=== PATIENT | female | born 1965 | race African-American/Black ===

== ENCOUNTER 2017-02-14 14:47 | Emergency (ER) | payer MEDICAID ==
[~2017-02-14] VITALS: Ht 175.3 cm; Wt 113.4 kg
[2017-02-14] MEDS ORDERED: ESTRADIOL0.5 M1 PO (14:56)
[2017-02-14] MEDS ORDERED: Albuterol ud Inhalation HHN ONE (15:15)
[2017-02-14] MEDS ORDERED: ZITHROMAX250 MG ORAL (15:54)
[2017-02-14] MEDS ORDERED: PROVENTIL HFA6.7 G1 IH (15:54)
--- NOTE | 2017-02-14 15:55 | Emergency Room Report ---
History of Present Illness General Chief Complaint: Upper Respiratory Illness Source: Patient Present Illness HPI 51 y/o female c/o URI sxs x 2 weeks. Assoc sxs include cough, fatigue, and chest congestion with green phlegm. States she has a hx of chronic bronchitis and does not take medications. States they have not taken medications and report no improvement of symptoms since initial onset. Denies any current n/v/f/ c/d, abd pain, back pain, neck pain, photophobia, phonophobia, CP, SOB or headache. Allergies: Coded Allergies: No Known Allergies (Unverified , 02/14/17) Patient History Past Medical History: see triage record Pertinent Family History: none Last Menstrual Period: menopause Reviewed Nursing Documentation: PMH: Agreed, PSxH: Agreed Nursing Documentation-PMH Past Medical History: No Stated History Review of Systems All Other Systems: negative except mentioned in HPI Physical Exam Vital Signs Date Time Temp Pulse Resp B/P (MAP) Pulse Ox O2 Delivery O2 Flow Rate FiO2 02/14/17 14:52 97.0 87 18 124/76 96 Room Air Sp02 EP Interpretation: reviewed, normal General Appearance: no apparent distress, alert, GCS 15, non-toxic Head: normocephalic, atraumatic Eyes: bilateral eye normal inspection, bilateral eye PERRL ENT: hearing grossly normal, normal pharynx, no angioedema, normal voice Neck: full range of motion, supple/symm/no masses Respiratory: chest non-tender, lungs clear - may be limited due to patient's habitus, normal breath sounds, speaking full sentences Cardiovascular #1: regular rate, rhythm, no edema Musculoskeletal: back normal, gait/station normal, normal range of motion Neurologic: alert, oriented x3, responsive, motor strength/tone normal, sensory intact, speech normal Psychiatric: judgement/insight normal, memory normal, mood/affect normal, no suicidal/homicidal ideation Skin: normal color, no rash, warm/dry, well hydrated Medical Decision Making PA Attestation Dr. Nam my supervising physician with whom patient management has been discussed with. Diagnostic Impression: Primary Impression: Community acquired pneumonia Qualified Codes: J18.1 - Lobar pneumonia, unspecified organism ER Course Pt. presents to the ED c/o of cough and chest congestion Ddx considered but are not limited to bronchitis, pneumonia, viral upper respiratory tract infection Vital signs: are WNL, pt. is afebrile H&PE are most consistent with questionable RLL pneumonia ORDERS: CXR ED INTERVENTIONS: Albuterol DISCHARGE: At this time pt. is stable for d/c to home. Will provide printed patient care instructions, and any necessary prescriptions. Care plan and follow up instructions have been discussed with the patient prior to discharge. Chest X-Ray Diagnostic Results Chest X-Ray Diagnostic Results : Chest X-Ray Ordered: Yes # of Views/Limited/Complete: 2 View Indication: Shortness of Breath EP Interpretation: Yes WILLIAMS Xray: Interpretation reviewed, by supervising MD, and agrees with findings. Interpretation: other - questionable RLL pneumonia Electronically Signed by: Lizabeth Hall PA-C Last Vital Signs Date Time Temp Pulse Resp B/P (MAP) Pulse Ox O2 Delivery O2 Flow Rate FiO2 02/14/17 15:05 87 18 Room Air 02/14/17 14:52 97.0 124/76 96 Disposition: HOME, SELF-CARE Scripts Albuterol Sulfate (PROVENTIL HFA) 6.7 Gm Hfa.aer.ad 2 PUFFS IH EVERY 6 HOURS Y for For Cough for 10 Days, #1 UNIT Prov: LIZABETH HALL.A. 02/14/17 Azithromycin* (ZITHROMAX*) 250 Mg Tablet 250 MG ORAL take as directed, #1 PACK 0 Refills Take two tables once daily for 1 day, then one tablet once daily for 4 days. Prov: LIZABETH HALL P.A. 02/14/17 Patient Instructions: Community-Acquired Pneumonia, Adult Additional Instructions: Take medication as directed. Drink plenty of fluids which include Gatorade and water. Get plenty of rest. Avoid taking medications on an empty stomach. If you have cough avoid dairy and cold beverages. If you have a fever, headache or body aches please take ivkw-[id number]-yozgtyt tylenol/motrin/advil unless a prescription for these symptoms have been given. If your symptoms are worsening or you have shortness or breath, severe headaches or chest pain, please call 911 or go to the ER. LIZABETH HALL Feb 14, 2017 15:55
--- NOTE | 2017-02-14 16:01 | Diagnostic Imaging Report ---
Indication: Cough Technique: XRAY Chest 2v Comparison: None FINDINGS: Heart size and mediastinal contours are within normal limits. There is very subtle asymmetric opacity in the medial right lower lung on frontal view which is likely related to vascular markings/vascular crowding since this is not seen on lateral view. Osseous structures demonstrate no acute abnormality. IMPRESSION: No definite focal consolidation.
[2017-02-14 16:15] VITALS: BP 120/82
[2017-02-14 16:20] VITALS: BP 120/82
== END 2017-02-14 16:20 | disposition home or self-care (01) ==
LOC: EMR 15:25
DX: J18.9 Pneumonia, unspecified organism (principal)
CPT/HCPCS: 71020; 94640; 94664; 99284

== ENCOUNTER 2017-03-02 14:36 | Emergency (ER) | payer MEDICAID ==
[~2017-03-02] VITALS: Ht 175.3 cm; Wt 99.8 kg
[~2017-03-02 14:36] MED LIST: ESTRADIOL0.5 M1 PO; PROVENTIL HFA6.7 G1 IH; ZITHROMAX250 MG ORAL
[2017-03-02 15:40] VITALS: BP 126/78
[2017-03-02] MEDS ORDERED: OMEPRAZOLE20 M2 ORAL (15:41)
[2017-03-02 16:30] VITALS: BP 129/84
--- NOTE | 2017-03-02 21:49 | Emergency Room Report ---
History of Present Illness General Chief Complaint: General Complaint Source: Patient Present Illness HPI The patient is a 51-year-old female presenting for 2 complaints. She has been having abdominal pain for the past 2 weeks. She also noticed a rash on her tongue this morning. Abdominal pain described as 5/10 burning sensation to the mid upper abdomen. It occasionally radiates to the mid chest. Worse tonight. She noticed a white rash on her tongue this morning. She was unable to scrape it off. She admits to a distant history of smoking. She denies any oral pain. She denies any other symptoms including N, V, F, chills, cough, weight loss, night sweats Allergies: Coded Allergies: No Known Allergies (Unverified , 02/14/17) Patient History Past Medical History: see triage record Pertinent Family History: none Reviewed Nursing Documentation: PMH: Agreed, PSxH: Agreed Nursing Documentation-PMH Past Medical History: No Stated History Review of Systems All Other Systems: negative except mentioned in HPI Physical Exam Vital Signs Date Time Temp Pulse Resp B/P (MAP) Pulse Ox O2 Delivery O2 Flow Rate FiO2 03/02/17 15:28 97.7 76 18 126/78 97 Room Air Sp02 EP Interpretation: reviewed, normal Head: normocephalic, atraumatic Eyes: bilateral eye normal inspection, bilateral eye PERRL ENT: normal pharynx, normal voice, uvula midline, other - There is a thick white coating primarily to the left side of the tongue. Unable to scrape off. Neck: full range of motion, supple/symm/no masses Musculoskeletal: back normal, gait/station normal, normal range of motion, non- tender Neurologic: alert, oriented x3, responsive, motor strength/tone normal, sensory intact, speech normal Skin: normal color, no rash, warm/dry, well hydrated Medical Decision Making PA Attestation Dr. Nam is my supervising physician. Patient management was discussed with my supervising physician Diagnostic Impression: Primary Impression: GERD (gastroesophageal reflux disease) Qualified Codes: K21.9 - Gastro-esophageal reflux disease without esophagitis Additional Impression: Leukoplakia ER Course The patient is a 51-year-old female presenting for abdominal pain and tongue rash Differential diagnoses considered but not limited to: GERD, gastritis, gastric ulcer, gastroenteritis Differential diagnoses considered but not limited to: Oral candidiasis, leukoplakia, malignancy, among others Physical exam: Vitals within normal limits. No apparent distress There is a thick white coating primarily to the left side of the tongue. Unable to scrape off. RRR. Lungs are clear to auscultation bilaterally Abdomen is soft. Normal bowel sounds. Nondistended. Non tender The patient is discharged home with prescription for omeprazole. She will follow up with her primary doctor and is told she will likely need further evaluation and testing for the tongue lesion as soon as possible Last Vital Signs Date Time Temp Pulse Resp B/P (MAP) Pulse Ox O2 Delivery O2 Flow Rate FiO2 03/02/17 16:30 68 20 129/84 96 Room Air 03/02/17 15:40 97.7 Status: improved Disposition: HOME, SELF-CARE Condition: Improved Scripts Omeprazole (OMEPRAZOLE) 20 Mg Capsule. 20 MG ORAL DAILY, #30 CAP Prov: DULCE FERREIRA 03/02/17 Referrals: [facility],REFERRING (PCP) Patient Instructions: Food Choices for Gastroesophageal Reflux Disease, Adult, Leukoplakia Additional Instructions: I discussed my findings with the patient. All questions and concerns have been answered. Treatment and medication compliance have been addressed. I advised the patient that they need to follow up with PMD in 3-5 days. Return to ED if symptoms worsen, new symptoms arise, or if needed for any reason. Patient verbalized understanding of discharge instructions. Please followup with your primary doctor as soon as possible for further evaluation of the tongue lesion. You may need to have biopsy done DULCE FERREIRA Mar 02, 2017 21:49
== END 2017-03-02 16:30 | disposition home or self-care (01) ==
LOC: EMR 15:48
DX: K21.9 Gastro-esophageal reflux disease without esophagitis (principal); K14.9 Disease of tongue, unspecified
CPT/HCPCS: 99283

== ENCOUNTER 2017-05-24 20:49 | Emergency (ER) | payer MEDICAID ==
[~2017-05-24] VITALS: Ht 175.3 cm; Wt 137.9 kg
[~2017-05-24 20:49] MED LIST changes: +OMEPRAZOLE20 M2 ORAL
[2017-05-24 21:05] VITALS: BP 118/84
--- NOTE | 2017-05-24 22:13 | Emergency Room Report ---
History of Present Illness General Chief Complaint: Constipation Source: Patient Present Illness HPI 51-year-old female walks in with 2 days of constipation States normall she has bowel movement every day She denies being able to pass any gas Denies any nausea, vomiting. States she's been able to eat 3 meals a day as normal denies any new medication, pain medications, opioids Surgical history significant only for prior hysterectomy She saw her doctor today who "did blood work" but she wasn't given the results yet Has been drinking tea however has not tried any laxatives Allergies: Coded Allergies: No Known Allergies (Unverified , 02/14/17) Patient History Past Medical History: none Pertinent Family History: none Social History: Denies: smoking, alcohol use, drug use Last Menstrual Period: N/A - HYSTERECTOMY Now: No Immunizations: UTD Reviewed Nursing Documentation: PMH: Agreed; PSxH: Agreed Nursing Documentation-PMH Past Medical History: No History, Except For Hx Cardiac Problems: No - OA Review of Systems All Other Systems: negative except mentioned in HPI Physical Exam Vital Signs Date Time Temp Pulse Resp B/P (MAP) Pulse Ox O2 Delivery O2 Flow Rate FiO2 05/24/17 20:55 98.3 85 20 116/82 95 Room Air 98.2 Sp02 EP Interpretation: reviewed, normal General Appearance: normal inspection, well appearing, no apparent distress, alert, GCS 15, non-toxic, obese, other - ambulates with cane Head: normocephalic, atraumatic Eyes: bilateral eye PERRL, bilateral eye EOMI ENT: normal ENT inspection, hearing grossly normal, normal pharynx, no angioedema, normal voice, TMs + canals normal, uvula midline, moist mucus membranes Neck: normal inspection, full range of motion, supple, thyroid normal, no meningismus, no bony tend Respiratory: normal inspection, lungs clear, normal breath sounds, no rhonchi, no respiratory distress, no retraction, no accessory muscle use, no wheezing, speaking full sentences Cardiovascular #1: regular rate, rhythm, no edema, no JVD, normal capillary refill Gastrointestinal: normal inspection, normal bowel sounds, soft, no mass, no peritonitis, non-distended, no guarding, no hernia, no pulsatile mass, other - Very minimal ttp to left upper and lower abdomen.\\ Genitourinary: no CVA tenderness Musculoskeletal: normal inspection, back normal, normal range of motion, no calf tenderness, pelvis stable, Dk's Sign negative Neurologic: normal inspection, alert, oriented x3, responsive, 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, motor strength/tone normal, cerebellar normal, normal gait, speech normal Psychiatric: normal inspection, judgement/insight normal, mood/affect normal, no suicidal/homicidal ideation, no delusions Skin: normal inspection, normal color, no rash Lymphatic: normal inspection, no adenopathy Medical Decision Making Diagnostic Impression: Primary Impression: Constipation Qualified Codes: K59.00 - Constipation, unspecified ER Course Vital signs stable, afebrile Very well-appearing Low suspicion for SBO despite past history of hysterectomy given well appearance , nonfocal abdomen and still able to tolerate by mouth, eat 3 meals a day UA negative for infection Abdominal x-ray series: No air-fluid level or distention. Normal gas bowel pattern, questionable constipation ER course: Patient has remained stable during ED stay. Disposition: Patient is to be discharged to home. Prescriptions given are lactulose Patient is instructed to follow up with their primary care doctor within 5 days. Strict return precautions discussed with patient such as fever, chills, worsening/severe pain, nausea, vomiting, which may indicate severe illness. Patient verbalizes understanding and agrees with plan. Please note that this Emergency Department Report was dictated using bigtincanreconciliation specialist technology software, occasionally this can lead to erroneous entry secondary to interpretation by the dictation equipment Last Vital Signs Date Time Temp Pulse Resp B/P (MAP) Pulse Ox O2 Delivery O2 Flow Rate FiO2 05/24/17 21:05 98.1 84 15 118/84 96 Room Air 98.1 Status: improved Disposition: HOME, SELF-CARE Scripts Lactulose (LACTULOSE*) 20 Gm/30 Ml Solution 15 ML ORAL BID for constipation for 2 Days, #1 UNIT 0 Refills Prov: TRACIE DIAMOND M.D. 05/24/17 TRACIE DIAMOND M.D. May 24, 2017 22:13
[2017-05-24 22:28] LABS: APPEARANCE,URINE CLEAR; BILIRUBIN, URINE NEGATIVE (NEGATIVE); COLOR,URINE YELLOW; GLUCOSE, URINE (UA) NEGATIVE (NEGATIVE); KETONES,URINE NEGATIVE (NEGATIVE); LEUKOCYTE ESTERASE ,URINE 1+ (NEGATIVE); NITRITE,URINE NEGATIVE (NEGATIVE); PH,URINE 5 (4.5-8.0); PROTEIN,URINE 1+ (NEGATIVE); UROBILINOGEN,URINE 1 MG/DL (0.0-1.0)
[2017-05-24 22:50] VITALS: BP 120/82
[2017-05-24] MEDS ORDERED: LACTULOSE20 GM/301 ORAL (22:50)
[2017-05-24 23:00] VITALS: BP 120/82
--- NOTE | 2017-05-25 09:08 | Diagnostic Imaging Report ---
Indication: Constipation Technique: Supine abdomen Comparison: None Findings: Bowel gas pattern is nonobstructive and nonspecific. Moderate colonic stool is present. Degenerative changes of the spine are seen. There is degenerative spurring and narrowing of the left hip. Impression: Nonobstructive and nonspecific bowel gas pattern. Moderate predominantly right-sided and transverse colonic stool.
== END 2017-05-24 23:00 | disposition home or self-care (01) ==
LOC: EMR 21:15
DX: K59.00 Constipation, unspecified (principal); Z90.710 Acquired absence of both cervix and uterus
CPT/HCPCS: 74019; 81003; 99283

== ENCOUNTER 2017-05-31 16:42 | Emergency (ER) | payer MEDICAID ==
[~2017-05-31] VITALS: Ht 175.3 cm; Wt 137.0 kg
[~2017-05-31 16:42] MED LIST changes: +LACTULOSE20 GM/301 ORAL
--- NOTE | 2017-05-31 17:02 | Emergency Room Report ---
History of Present Illness General Chief Complaint: Pain Source: Patient, Medical Record (Dharmesh Kruger) Present Illness HPI 51 yo female patient presents to ER complaining of right foot pain for one week. Denies recent injury, states did walk "a lot" yesterday. Reports sharp pain. Reports worse with ambulation. Reports wears compression stockings, denies taking water pills. Reports walks with cane secondary to chronic knee pain since last June. Reports history of edema and lymphedema, not currently being treated. Reports saw primary care provider today and has referrals for further treatment of edema and pain. Reports was not given pain medication at that time. Requesting pain medication. Denies fever, chest pain, SOB, abdominal pain, vision changes, AVILA, calf pain. Reports scheduled for weight loss surgery next month. Denies hx of cardiovascular disease. (Dharmesh Kruger) Allergies: Coded Allergies: No Known Allergies (Unverified , 02/14/17) Patient History Past Medical History: see triage record Last Menstrual Period: menopause Reviewed Nursing Documentation: PMH: Agreed; PSxH: Agreed (Dharmesh Kruger) Nursing Documentation-PMH Past Medical History: No History, Except For Hx Cardiac Problems: No - OA (Dharmesh Kruger) Review of Systems All Other Systems: negative except mentioned in HPI (Dharmesh Kruger) Physical Exam Vital Signs Date Time Temp Pulse Resp B/P (MAP) Pulse Ox O2 Delivery O2 Flow Rate FiO2 18 16:49 99.1 75 18 133/80 96 Room Air 99.1 Sp02 EP Interpretation: reviewed, normal General Appearance: well appearing, no apparent distress, alert, GCS 15, non- toxic, obese Head: normocephalic, atraumatic Eyes: bilateral eye normal inspection, bilateral eye PERRL ENT: hearing grossly normal, normal pharynx, no angioedema, normal voice, uvula midline, moist mucus membranes Neck: full range of motion Respiratory: lungs clear, normal breath sounds, no rhonchi, no respiratory distress, no accessory muscle use, no wheezing, speaking full sentences Cardiovascular #1: regular rate, rhythm, edema Musculoskeletal: back normal, digits/nails normal, gait/station normal, normal range of motion, non-tender, no calf tenderness, Dk's Sign negative, swelling , other - NVI, flat feet, sensation intact to light touch, tender - arch of right foot Neurologic: alert, oriented x3, responsive, motor strength/tone normal, sensory intact Skin: no rash, other - no red streaking Lymphatic: no adenopathy (Dharmesh Kruger) Medical Decision Making PA Attestation Dr. Aldrich is my supervising Physician whom patient management has been discussed with. (Dharmesh Kruger) Diagnostic Impression: Primary Impression: Right foot pain ER Course Pt. presents to the ED c/o right foot pain. Ddx considered but are not limited to fracture, sprain, strain, contusion, cellulitis, DVT. No chest pain, SOB, unilateral calf swelling, calf erythema, recent hospitalization or immobilization, low suspicion for DVT per Well's criteria. Vital signs: are WNL, pt. is afebrile Ordered X-ray and pain medication. ER COURSE An X-ray of the right foot was ordered, results show no acute disease, per the preliminary reading. Possible bony cyst, unlikely responsible for acute pain, does not require treatment at this time. F/u with PCP and ortho as needed. Discussed findings with patient. Discuss x-ray with Dr. Aldrich, agrees with assessment. Toradol provided in ER for pain. OLIVIA wrap applied to right foot, was checked afterwards by me showing good alignment and support with distal neurovascular functioning intact. Patient needs followup with referrals for further treatment and management of symptoms. Informed patient pain may be related to compensation of using cane on left side and putting more weight on right foot. Discussed may be related to flat feet and stretching of plantar fascia. Instructed patient to continue to wear inserts for shoes and begin stretches to improve arches. Patient reports feeling better following administration of pain medication. Continue to wear compression stockings. Report to scheduled appointment for referral for bilateral edema of legs. Weight loss will help prevent pain symptoms. DISCHARGE: -Rx provided for Tylenol for pain symptoms. At this time pt. is stable for d/c to home. Patient is resting comfortably, in no acute distress, nontoxic appearing, talking without difficulty. Will provide printed patient care instructions, and any necessary prescriptions. Patient instructed to follow with primary care provider in 3 - 5 days and to request further orthopedic follow-up. Care plan and follow up instructions have been discussed with the patient prior to discharge. Patient instructed on RICE method: rest, ice, compression, elevation. Patient instructed to WBAT Take medications as directed. Patient questions asked and answered. Patient reports understanding and agreement to treatment plan. ER precautions given, patient instructed to return to ER immediately for any new or worsening of symptoms. (Dharmesh Kruger) Other X-Ray Diagnostic Results Other X-Ray Diagnostic Results : X-Ray ordered: right foot # of Views/Limited Vs Complete: 3 View Indication: Pain EP Interpretation: Yes PA Xray: Interpretation reviewed, by supervising MD, and agrees with findings. Interpretation: no dislocation, no soft tissue swelling, no fractures Impression: No acute disease PA Scribe Text Quintin Kruger PA-C (Dharmesh Kruger) Other X-Ray Diagnostic Results : Electronically Signed by: Xray read by me. Agree with findings. Ghanshyam Aldrich MD (Ghanshaym Aldrich M.D.) Last Vital Signs Date Time Temp Pulse Resp B/P (MAP) Pulse Ox O2 Delivery O2 Flow Rate FiO2 05/31/17 16:49 99.1 75 18 133/80 96 Room Air 99.1 (Dharmesh Kruger) Last Vital Signs Date Time Temp Pulse Resp B/P (MAP) Pulse Ox O2 Delivery O2 Flow Rate FiO2 05/31/17 17:57 99.1 05/31/17 17:48 75 18 133/80 96 Room Air (Ghanshyam Aldrich M.D.) Disposition: HOME, SELF-CARE Condition: Stable Scripts Acetaminophen* (TYLENOL EXTRA STRENGTH*) 500 Mg Tablet 500 MG ORAL Q8H PRN for Prn Headache/Temp > 101, #30 TAB 0 Refills Prov: Dharmesh Kruger 05/31/17 Patient Instructions: Endoscopic Plantar Fasciotomy, Flat Feet, Foot Contusion , [id number], Plantar Fasciitis Additional Instructions: Patient instructed to follow up with primary care provider in 3-5 days. Patient instructed on RICE method: rest, ice, compression, elevation. Patient instructed to WBAT. Take medications as directed. Patient questions asked and answered. ER precautions given, patient instructed to return to ER immediately for any new or worsening of symptoms. Dharmesh Kruger May 31, 2017 17:02 Ghanshyam Aldrich M.D. Jun 01, 2017 04:25
[2017-05-31] MEDS ORDERED: Ketorolac 30mg Inj IM ONE (17:15)
[2017-05-31 17:23] VITALS: BP 133/80
[2017-05-31] MEDS ORDERED: TYLENOL EXTRA500 MG ORAL (17:42)
[2017-05-31 17:48] VITALS: BP 133/80
--- NOTE | 2017-06-01 09:35 | Diagnostic Imaging Report ---
Indication: Reason For Exam: PAIN Technique: Right foot, 3 views Comparison: None. Findings: There is a small bunion deformity of the first metatarsal. Bony structures intact. No fracture. No bone destruction. There is a plantar calcaneal spur. Impression: Calcaneal enthesophyte. Possible mild bunion deformity of the first metatarsal.
== END 2017-05-31 17:48 | disposition home or self-care (01) ==
LOC: EMR 17:45
DX: M79.671 Pain in right foot (principal)
CPT/HCPCS: 73630; 96372; 99283; J1885

== ENCOUNTER 2018-09-20 20:06 | Emergency (ER) | payer MEDICAID ==
[~2018-09-20] VITALS: Ht 175.3 cm; Wt 106.6 kg
[~2018-09-20 20:06] MED LIST changes: +TYLENOL EXTRA500 MG ORAL
[2018-09-20 20:13] VITALS: BP 123/62
[2018-09-20] MEDS ORDERED: VOLTAREN100 G1 TP (20:39)
[2018-09-20] MEDS ORDERED: NORCO 10-325 T1 EACH ORAL (20:39)
--- NOTE | 2018-09-20 20:39 | NUR ---
ED Nurse Note: Patient presents with complaints of chronic back pain, recently worsened.
[2018-09-20 20:43] VITALS: BP 123/62
--- NOTE | 2018-09-22 22:01 | Emergency Room Report ---
History of Present Illness General Chief Complaint: Back Pain-No Injury Source: Patient Present Illness Allergies: Coded Allergies: No Known Allergies (Unverified , 02/14/17) Patient History Last Menstrual Period: NA Now: No : 0 Para: 0 Nursing Documentation-PMH Hx Cardiac Problems: No - OA Hx Neurological Problems: Yes - back manuel; shoulder Physical Exam Vital Signs Date Time Temp Pulse Resp B/P (MAP) Pulse Ox O2 Delivery O2 Flow Rate FiO2 09/20/18 20:13 97.5 89 16 123/62 98 Room Air Medical Decision Making Diagnostic Impression: Primary Impression: Chronic back pain greater than 3 months duration Last Vital Signs Date Time Temp Pulse Resp B/P (MAP) Pulse Ox O2 Delivery O2 Flow Rate FiO2 09/20/18 20:43 97.5 89 16 123/62 98 Room Air Status: improved Disposition: HOME, SELF-CARE Condition: Stable Scripts Hydrocodone Bit/Acetaminophen 10-325* (NORCO 10-325*) 1 Each Tablet 1 TAB ORAL Q6H PRN for For Pain, #12 TAB 0 Refills PRN PAIN Prov: Sander Zurita MD 09/20/18 Diclofenac Sodium (VOLTAREN) 100 Gm Gel..gram. 5 GM TP EVERY 6 HOURS, #30 GM Prov: Sander Zurita MD 09/20/18 Referrals: [facility],REFERRING (PCP) Patient Instructions: Back Pain, Adult Additional Instructions: Follow up with physical therapy for recheck. Return if worse. Sander Zurita MD Sep 22, 2018 22:01
== END 2018-09-20 20:43 | disposition home or self-care (01) ==
LOC: EMR 20:34
DX: G89.29 Other chronic pain (principal); M54.9 Dorsalgia, unspecified; M19.90 Unspecified osteoarthritis, unspecified site
CPT/HCPCS: 99282

== ENCOUNTER 2019-09-28 19:34 | Emergency (ER) | payer MEDICAID, OTHER ==
[~2019-09-28] VITALS: Ht 175.3 cm; Wt 108.9 kg
[~2019-09-28 19:34] MED LIST changes: +NORCO 10-325 T1 EACH ORAL; +VOLTAREN100 G1 TP
--- NOTE | 2019-09-28 20:28 | Emergency Room Report ---
History of Present Illness General Chief Complaint: Edema Source: Patient Present Illness HPI 54-year-old female presents with swelling of the bilateral lower ankles has been occurring for a few days she notices it near the end of the day worsened by standing for long periods of time, alleviated with leg elevation, and it is better in the morning, severity is mild, intermittent, patient denies any chest pain shortness of breath no dyspnea on exertion presents for evaluation and treatment Allergies: Coded Allergies: No Known Allergies (Unverified , 02/14/17) COVID-19 Screening Contact w/high risk pt: No Experienced COVID-19 symptoms?: No COVID-19 Testing performed CANDY SPREADER: No Patient History Past Medical History: see triage record Now: No Reviewed Nursing Documentation: PMH: Agreed; PSxH: Agreed Nursing Documentation-PMH Hx Cardiac Problems: No - OA Hx Neurological Problems: Yes - back manuel; shoulder Review of Systems All Other Systems: negative except mentioned in HPI Physical Exam Vital Signs Date Time Temp Pulse Resp B/P (MAP) Pulse Ox O2 Delivery O2 Flow Rate FiO2 09/28/19 19:59 98.4 88 20 132/76 (94) 98 Room Air Sp02 EP Interpretation: reviewed, normal General Appearance: well appearing, no apparent distress, alert Head: normocephalic, atraumatic Eyes: bilateral eye PERRL, bilateral eye EOMI ENT: uvula midline, moist mucus membranes Neck: supple, thyroid normal, supple/symm/no masses Respiratory: lungs clear, no respiratory distress, no retraction, no accessory muscle use Cardiovascular #1: normal peripheral pulses, regular rate, rhythm, no edema, no gallop, no murmur Gastrointestinal: non tender, soft, no guarding, no rebound Musculoskeletal: normal inspection Neurologic: alert, oriented x3 Psychiatric: mood/affect normal Skin: no rash, warm/dry, other - Ankles bilaterally mildly swollen with trace edema Medical Decision Making Diagnostic Impression: Primary Impression: Venous insufficiency Additional Impression: Edema Qualified Codes: R60.0 - Localized edema ER Course 54-year-old female presents most likely with venous insufficiency with bilateral edema noted, no evidence of CHF no evidence of ACS, lungs clear to auscultation, no JVD additionally chest x-ray is negative for acute pathology Labs unremarkable Patient counseled on supportive care. Dispo home w/ return precautions follow-up with pcp Laboratory Tests Test 09/28/19 20:50 White Blood Count 6.6 K/UL (4.8-10.8) Red Blood Count 4.44 M/UL (4.20-5.40) Hemoglobin 13.1 G/DL (12.0-16.0) Hematocrit 39.8 % (37.0-47.0) Mean Corpuscular Volume 90 FL (80-99) Mean Corpuscular Hemoglobin 29.6 PG (27.0-31.0) Mean Corpuscular Hemoglobin Concent 33.0 G/DL (32.0-36.0) Red Cell Distribution Width 12.4 % (11.6-14.8) Platelet Count 236 K/UL (150-450) Mean Platelet Volume 6.7 FL (6.5-10.1) Neutrophils (%) (Auto) 44.1 % (45.0-75.0) L Lymphocytes (%) (Auto) 46.8 % (20.0-45.0) H Monocytes (%) (Auto) 6.6 % (1.0-10.0) Eosinophils (%) (Auto) 1.5 % (0.0-3.0) Basophils (%) (Auto) 1.1 % (0.0-2.0) Sodium Level 141 MMOL/L (136-145) Potassium Level 3.9 MMOL/L (3.5-5.1) Chloride Level 105 MMOL/L (98-107) Carbon Dioxide Level 32 MMOL/L (21-32) Anion Gap 4 mmol/L (5-15) L Blood Urea Nitrogen 12 mg/dL (7-18) Creatinine 0.8 MG/DL (0.55-1.30) Estimated Glomerular Filtration Rate > 60 mL/min (>60) Glucose Level 92 MG/DL (74-106) Calcium Level 9.4 MG/DL (8.5-10.1) Total Bilirubin 0.3 MG/DL (0.2-1.0) Aspartate Amino Transferase (AST) 11 U/L (15-37) L Alanine Aminotransferase (ALT) 11 U/L (12-78) L Alkaline Phosphatase 90 U/L (46-116) Troponin I 0.000 ng/mL (0.000-0.056) Pro-B-Type Natriuretic Peptide 66 pg/mL (0-125) Total Protein 7.4 G/DL (6.4-8.2) Albumin 3.9 G/DL (3.4-5.0) Globulin 3.5 g/dL Albumin/Globulin Ratio 1.1 (1.0-2.7) EKG Diagnostic Results EKG Time: 20:21 EP Interpretation: Sinus bradycardia, rate 48, QTc 410, no acute ST elevations , normal axis Rhythm Strip Diag. Results Rhythm Strip Time: 20:27 EP Interpretation: yes Rate: 52 Rhythm: other - Sinus bradycardia Chest X-Ray Diagnostic Results Chest X-Ray Diagnostic Results : Chest X-Ray Ordered: Yes # of Views/Limited/Complete: 1 View Indication: Chest Pain EP Interpretation: Yes Interpretation: no consolidation, no effusion, no pneumothorax, no acute cardiopulmonary disease Impression: No acute disease Electronically Signed by: Holden Valadez MD Last Vital Signs Date Time Temp Pulse Resp B/P (MAP) Pulse Ox O2 Delivery O2 Flow Rate FiO2 09/28/19 19:59 98.4 88 20 132/76 (94) 98 Room Air Disposition: HOME, SELF-CARE Condition: Stable Referrals: [facility],REFERRING (PCP) [facility] Rickey Stanford [facility] Patient Instructions: Venous Stasis or Chronic Venous Insufficiency Additional Instructions: The patient was provided with discharge instructions, notified to follow-up with a primary care doctor and or specialist in the next 24-48 hours, and to return to the ED if they have worsening of their symptoms. Please note that this report is being documented using [employer] technology. This can lead to erroneous entry secondary to incorrect interpretation by the dictating instrument. Holden Valadez MD Sep 28, 2019 20:28
[2019-09-28 20:53] VITALS: BP 118/72
[2019-09-28 20:55] LABS: BASOPHILS % (AUTO) 1.1 % (0.0-2.0); EOSINOPHILS % (AUTO) 1.5 % (0.0-3.0); HEMATOCRIT 39.8 % (37.0-47.0); HEMOGLOBIN 13.1 G/DL (12.0-16.0); LYMPHOCYTES % (AUTO) 46.8 % (20.0-45.0); MEAN CORPUSCULAR VOLUME 90 FL (80-99); MONOCYTES % (AUTO) 6.6 % (1.0-10.0); NEUTROPHILS % (AUTO) 44.1 % (45.0-75.0); PLATELET COUNT 236 K/UL (150-450); RED BLOOD COUNT 4.44 M/UL (4.20-5.40); RED CELL DISTRIBUTION WIDTH 12.4 % (11.6-14.8); WHITE BLOOD COUNT 6.6 K/UL (4.8-10.8)
[2019-09-28 21:05] LABS: ANION GAP 4 mmol/L (5-15); BLOOD UREA NITROGEN 12 mg/dL (7-18); CALCIUM 9.4 MG/DL (8.5-10.1); CARBON DIOXIDE 32 MMOL/L (21-32); CHLORIDE 105 MMOL/L (98-107); CREATININE 0.8 MG/DL (0.55-1.30); POTASSIUM 3.9 MMOL/L (3.5-5.1); SODIUM 141 MMOL/L (136-145)
[2019-09-28 21:17] LABS: ALANINE AMINOTRANSFERASE 11 U/L (12-78); ALBUMIN 3.9 G/DL (3.4-5.0); ALBUMIN/GLOBULIN RATIO 1.1 (1.0-2.7); ALKALINE PHOSPHATASE 90 U/L (46-116); ASPARTATE AMINO TRANSFERASE 11 U/L (15-37); BILIRUBIN,TOTAL 0.3 MG/DL (0.2-1.0)
[2019-09-28 21:43] VITALS: BP 114/72
--- NOTE | 2019-09-29 10:02 | Diagnostic Imaging Report ---
Procedure: XRAY Chest 1v Reason for study: Preoperative exam. Cough. Comparison films: None. FINDINGS: A single one view chest is obtained. Vascularity is normal. There is no acute alveolar process. Cardiac and mediastinal silhouette are within normal limits. CP angles are sharp. The bony thorax appear unremarkable. IMPRESSION: NO ACUTE CARDIOPULMONARY DISEASE.
== END 2019-09-28 21:40 | disposition home or self-care (01) ==
LOC: EMR 19:48
DX: I87.2 Venous insufficiency (chronic) (peripheral) (principal); R60.0 Localized edema; M19.90 Unspecified osteoarthritis, unspecified site; R00.1 Bradycardia, unspecified
CPT/HCPCS: 36415; 71045; 80053; 83880; 84484; 85025; 93005; Z7502; 99283

== ENCOUNTER 2020-02-12 15:31 | Emergency (ER) | payer OTHER ==
[~2020-02-12] VITALS: Ht 175.3 cm; Wt 103.9 kg
--- NOTE | 2020-02-12 16:29 | Emergency Room Report ---
History of Present Illness General Chief Complaint: Lower Extremity Injury Source: Patient Present Illness HPI 54-year-old female presents to the emergency department complaining of 8 out of 10 severity left-sided hip pain status post mechanical slip and fall which occurred yesterday. Patient denies hitting her head or having a loss of consciousness. Patient denies new or changes in previous midline neck or back pain. Patient reports history of OA. Patient reports pain exacerbated upon weightbearing so she is currently using crutches. She denies open wounds or bleeding. She denies visible bruising, erythema or warmth. She denies paresthesias of the affected extremity. Allergies: Coded Allergies: No Known Allergies (Unverified , 02/14/17) COVID-19 Screening Contact w/high risk pt: No Experienced COVID-19 symptoms?: No COVID-19 Testing performed GREEN JOBS TRAINER: No Patient History Past Medical History: see triage record Past Surgical History: none Pertinent Family History: none Now: No Reviewed Nursing Documentation: PMH: Agreed; PSxH: Agreed Nursing Documentation-PMH Past Medical History: No History, Except For Hx Cardiac Problems: No - OA Hx Neurological Problems: Yes - back manuel; shoulder Review of Systems All Other Systems: negative except mentioned in HPI Physical Exam Vital Signs Date Time Temp Pulse Resp B/P (MAP) Pulse Ox O2 Delivery O2 Flow Rate FiO2 02/12/20 15:42 97.9 60 16 138/74 (95) 99 Room Air Sp02 EP Interpretation: reviewed, normal General Appearance: no apparent distress, alert, GCS 15, non-toxic Head: normocephalic, atraumatic Eyes: bilateral eye normal inspection, bilateral eye PERRL ENT: hearing grossly normal, normal voice Neck: full range of motion Respiratory: chest non-tender, lungs clear, normal breath sounds, speaking full sentences Cardiovascular #1: regular rate, rhythm, no edema Musculoskeletal: back normal, normal range of motion, non-tender, other - non weight bearing on left leg, no leg length discrepancy. pain w. flexion. Neurologic: alert, motor strength/tone normal, oriented x3, sensory intact, responsive, speech normal Psychiatric: judgement/insight normal Medical Decision Making PA Attestation Dr. Aldrich Is my supervising Physician whom patient management has been discussed with. Diagnostic Impression: Primary Impression: Contusion of hip, left Qualified Codes: S70.02XA - Contusion of left hip, initial encounter Additional Impression: Degenerative arthritis of hip Qualified Codes: M16.12 - Unilateral primary osteoarthritis, left hip ER Course 54-year-old female presents to the emergency department complaining of 8 out of 10 severity left-sided hip pain status post mechanical slip and fall which occurred yesterday. Patient denies hitting her head or having a loss of consciousness. Patient denies new or changes in previous midline neck or back pain. Patient reports history of OA. Patient reports pain exacerbated upon weightbearing so she is currently using crutches. She denies open wounds or bleeding. She denies paresthesias of the affected extremity. Ddx considered but are not limited to Fracture, dislocation, contusion, Sprain/Strain/Spasm Vital signs: are WNL, pt. is afebrile H&PE are most consistent with musculoskeletal injury will perform imaging to r/o fractures/dislocations. ORDERS: - CT Left Hip: degenerative changes, no acute fractures or DL ED INTERVENTIONS: - IBU PO -Tylenol PO REVIEW of CURES: Patient receives monthly prescription for 10 mg [place]. DISCHARGE: At this time pt. is stable for d/c to home. Will provide printed patient care instructions, and any necessary prescriptions. Care plan and follow up instructions have been discussed with the patient prior to discharge. CT/MRI/US Diagnostic Results CT/MRI/US Diagnostic Results : Imaging Test Ordered: CT hip no contrast Impression " IMPRESSION: 1. Degenerative changes of the left hip, most prominent in the superior joint space with joint space narrowing and subchondral cystic formation. 2. No acute fracture or dislocation." --Per official radiology report- Please see report for specific details. Last Vital Signs Date Time Temp Pulse Resp B/P (MAP) Pulse Ox O2 Delivery O2 Flow Rate FiO2 02/12/20 15:42 97.9 60 16 138/74 (95) 99 Room Air Disposition: HOME, SELF-CARE Condition: Stable Scripts Diclofenac Sodium (VOLTAREN) 100 Gm Gel..gram. 1 APPLIC TP TID, #100 GM Prov: Esha Lagunas 02/12/20 Lidocaine Patch* (Lidoderm Patch*) 1 Each Adh..patch 1 PATCH TOPIC DAILY, #30 PATCH 0 Refills Patch(es) may remain in place for up to 12 hours in any 24-hour period. Prov: Esha Lagunas 02/12/20 Acetaminophen* (TYLENOL EXTRA STRENGTH*) 500 Mg Tablet 500 MG ORAL Q6H, #30 TAB 0 Refills Prov: Esha Lagunas 02/12/20 Patient Instructions: Hip Pain Additional Instructions: Take previously prescribed medications as directed. Follow up with an MUSIC TEACHER in 3-5 days, even if your symptoms have resolved. If symptoms persist MRI or physical therapy may be required at the discretion of your PCP or Ortho Specialist. --Please review list of primary care clinics, if you do not already have a primary care provider who can give you an Orthopedic Referral. Return sooner to ED if new symptoms occur, or current symptoms become worse. - Please note that this Emergency Department Report was dictated using [employer] platform supervisor technology software, occasionally this can lead to erroneous entry secondary to interpretation by the dictation equipment. Esha Lagunas Feb 12, 2020 16:29
--- NOTE | 2020-02-12 16:54 | Diagnostic Imaging Report ---
EXAM: CT Left Lower Extremity Without Intravenous Contrast, Hip CLINICAL HISTORY: PAIN TECHNIQUE: Axial computed tomography images of the left hip without intravenous contrast. CTDI is 14.40 mGy and DLP is 570.90 mGy-cm. One or more of the following dose reduction techniques were used: automated exposure control, adjustment of the mA and/or kV according to patient size, use of iterative reconstruction technique. COMPARISON: None FINDINGS: Bones/joints: Degenerative changes of the left hip, most prominent in the superior joint space with joint space narrowing and subchondral cystic formation. No acute fracture or dislocation. Soft tissues: Body wall edema are postsurgical changes. Surgical clips in the right inguinal region. Lymph nodes: Nonspecific mildly prominent inguinal lymph nodes. IMPRESSION: 1. Degenerative changes of the left hip, most prominent in the superior joint space with joint space narrowing and subchondral cystic formation. 2. No acute fracture or dislocation.
[2020-02-12] MEDS ORDERED: LIDODERM700 M1 TOPIC (17:25)
[2020-02-12] MEDS ORDERED: VOLTAREN100 G1 TP (17:25)
[2020-02-12] MEDS ORDERED: TYLENOL EXTRA500 MG ORAL (17:25)
[2020-02-12 17:39] VITALS: BP 135/71
== END 2020-02-12 17:41 | disposition home or self-care (01) ==
LOC: EMR 15:50
DX: S70.02XA Contusion of left hip, initial encounter (principal); M16.12 Unilateral primary osteoarthritis, left hip; W01.0XXA Fall on same level from slipping, tripping and stumbling without subsequent striking against object, initial encounter; Y93.9 Activity, unspecified; Y92.9 Unspecified place or not applicable
CPT/HCPCS: 73700; Z7502; 99284

== ENCOUNTER 2020-04-27 18:42 | Emergency (ER) | payer MEDICARE, OTHER ==
[~2020-04-27] VITALS: Ht 175.3 cm; Wt 102.1 kg
[~2020-04-27 18:42] MED LIST changes: +LIDODERM700 M1 TOPIC
[2020-04-27] MEDS ORDERED: Meclizine 25mg tab ORAL PRN (19:15)
[2020-04-27 19:33] LABS: APPEARANCE,URINE CLEAR; BILIRUBIN, URINE NEGATIVE (NEGATIVE); COLOR,URINE PALE YELLOW; GLUCOSE, URINE (UA) NEGATIVE (NEGATIVE); KETONES,URINE NEGATIVE (NEGATIVE); LEUKOCYTE ESTERASE ,URINE 1+ (NEGATIVE); NITRITE,URINE NEGATIVE (NEGATIVE); PH,URINE 5 (4.5-8.0); PROTEIN,URINE NEGATIVE (NEGATIVE); UROBILINOGEN,URINE NORMAL MG/DL (0.0-1.0)
[2020-04-27 19:37] LABS: BASOPHILS % (AUTO) 0.9 % (0.0-2.0); EOSINOPHILS % (AUTO) 0.9 % (0.0-3.0); HEMATOCRIT 42.2 % (37.0-47.0); HEMOGLOBIN 13.3 G/DL (12.0-16.0); LYMPHOCYTES % (AUTO) 38.6 % (20.0-45.0); MEAN CORPUSCULAR VOLUME 92 FL (80-99); MONOCYTES % (AUTO) 5.4 % (1.0-10.0); NEUTROPHILS % (AUTO) 54.2 % (45.0-75.0); PLATELET COUNT 279 K/UL (150-450); RED CELL DISTRIBUTION WIDTH 12.9 % (11.6-14.8)
[2020-04-27 19:43] LABS: ANION GAP 7 mmol/L (5-15); BLOOD UREA NITROGEN 16 mg/dL (7-18); CALCIUM 9.1 MG/DL (8.5-10.1); CARBON DIOXIDE 29 MMOL/L (21-32); CHLORIDE 104 MMOL/L (98-107); CREATININE 0.9 MG/DL (0.55-1.30); POTASSIUM 3.4 MMOL/L (3.5-5.1); SODIUM 140 MMOL/L (136-145)
[2020-04-27 19:48] LABS: ALANINE AMINOTRANSFERASE 21 U/L (12-78); ALBUMIN 3.5 G/DL (3.4-5.0); ALBUMIN/GLOBULIN RATIO 0.9 (1.0-2.7); ALKALINE PHOSPHATASE 102 U/L (46-116); ASPARTATE AMINO TRANSFERASE 12 U/L (15-37); BILIRUBIN,TOTAL 0.3 MG/DL (0.2-1.0)
[2020-04-27 20:17] VITALS: BP 124/77
--- NOTE | 2020-04-27 20:19 | Emergency Room Report ---
History of Present Illness General Chief Complaint: Headache Present Illness HPI 54-year-old female with history of cholelithiasis here complaining of 1 day of feeling lightheaded and epigastric abdominal pain. Patient reports that she was in [place] for 2 weeks, ate good as she has had 2 gastric sleeve placement in the past and has been watching her diet. Denies any alcohol intake, tobacco smoke, drug use. Reports that she drove in [place] back [place] and went to [place] and [place]. Patient started feeling lightheaded after that drive. Reports that she walked a lot when she was in [place] and had blood work. Denies any calf tenderness, chest pain or shortness of breath. Reports that she tries to drink enough water while driving. Denies fever and chills, urinary symptoms. Denies any diarrhea or constipation. Denies any bloody stools. Complains of feeling nauseated today. Denies feeling chills. Patient is neurovascularly intact, no unilateral or generalized weakness noted. Does not have any slurred speech. (Rose Martinez) Allergies: Coded Allergies: No Known Allergies (Unverified , 02/14/17) COVID-19 Screening Contact w/high risk pt: No Experienced COVID-19 symptoms?: No COVID-19 Testing performed PETROLEUM SAMPLER: No (Rose Martinez) Patient History Past Medical History: see triage record Past Surgical History: none Pertinent Family History: none Now: No Reviewed Nursing Documentation: PMH: Agreed; PSxH: Agreed (Rose Martinez) Nursing Documentation-PMH Hx Cardiac Problems: No - OA Hx Neurological Problems: Yes - back amnuel; shoulder (Rose Martinez) Review of Systems All Other Systems: negative except mentioned in HPI (Rose Martinez) Physical Exam Vital Signs Date Time Temp Pulse Resp B/P (MAP) Pulse Ox O2 Delivery O2 Flow Rate FiO2 04/27/20 18:48 98.2 64 18 147/86 (106) 97 Room Air Sp02 EP Interpretation: reviewed General Appearance: no apparent distress, alert, GCS 15, non-toxic Head: normocephalic, atraumatic Eyes: bilateral eye normal inspection, bilateral eye PERRL ENT: normal pharynx, no angioedema, normal voice, TMs + canals normal Neck: full range of motion, supple/symm/no masses Respiratory: lungs clear, normal breath sounds, no rhonchi, no respiratory distress, no retraction, no accessory muscle use Cardiovascular #1: regular rate, rhythm, no edema Cardiovascular #2: 2+ carotid (R), 2+ carotid (L), 2+ radial (R), 2+ radial (L), 2+ dorsalis pedis (R), 2+ dorsalis pedis (L) Gastrointestinal: non tender, soft, no organomegaly, no peritonitis, no bruit, non-distended Rectal: deferred Genitourinary: no CVA tenderness Musculoskeletal: back normal Neurologic: alert, motor strength/tone normal, oriented, oriented x3, sensory intact, responsive, speech normal Psychiatric: judgement/insight normal, memory normal, mood/affect normal, no suicidal/homicidal ideation Skin: no rash Lymphatic: no adenopathy (Rose Martinez) Medical Decision Making PA Attestation All diagnoses and treatment plans were reviewed and discussed with my supervising physician Dr. Aldrich (Rose Martinez) Diagnostic Impression: Primary Impression: Cholelithiases Additional Impressions: Dehydration Dizziness UTI (urinary tract infection) ER Course 54-year-old female with history of cholelithiasis here complaining of 1 day of feeling lightheaded and epigastric abdominal pain. Patient reports that she was in [place] for 2 weeks, ate good as she has had 2 gastric sleeve placement in the past and has been watching her diet. Denies any alcohol intake, tobacco smoke, drug use. Reports that she drove in [employer] back home and went to [place]. Patient started feeling lightheaded after that drive. Reports that she walked a lot when she was in [place] and had blood work. Denies any calf tenderness, chest pain or shortness of breath. Reports that she tries to drink enough water while driving. Denies fever and chills, urinary symptoms. Denies any diarrhea or constipation. Denies any bloody stools. Complains of feeling nauseated today. Denies feeling chills. Patient is neurovascularly intact, no unilateral or generalized weakness noted. Does not have any slurred speech. Ddx considered but are not limited to: Dizziness due to alcohol intoxication, dizziness unspecified, dizziness due to head trauma, dizziness secondary to cardiac reasons Vital signs: are WNL, pt. is afebrile H&PE are most consistent with: Dizziness, UTI, dehydration, cholelithiasis without cholecystitis At this time patient is a non-smoker, is active, denies any calf tenderness, ch est pain, posterior chest pain, shortness of breath, I do not believe the patient needs to be worked up for hospital PE or DVT. ORDERS: Syncope order set, abdominal ultrasound, Zofran, meclizine, Keflex ER intervention: NS bolus, meclizine, Zofran, Pepcid DISCHARGE: At this time pt. is stable for d/c to home. Will provide printed patient care instructions, and any necessary prescriptions. Care plan and follow up instructions have been discussed with the patient prior to discharge. Advised patient to follow primary doctor, general surgeon, also address dizziness, follow-up with neurologist may be needed, if worsening symptoms re turn to the emergency room. (Rose Martinez) EKG Diagnostic Results Rate: bradycardiac Rhythm: NSR ST Segments: no acute changes Other Impression no acute ST changes ASA given to the pt in ED: No (Rose Martinez) Chest X-Ray Diagnostic Results Chest X-Ray Diagnostic Results : Chest X-Ray Ordered: Yes # of Views/Limited/Complete: 1 View Indication: Other EP Interpretation: Yes PA Xray: Interpretation reviewed, by supervising MD, and agrees with findings. Interpretation: no consolidation, no effusion, no pneumothorax Impression: No acute disease (Rose Martinez) Chest X-Ray Diagnostic Results : Electronically Signed by: Bhavin Bruce documentation of Xray reviewed by me and is accurate, Ghanshyam Aldrich MD (Ghanshyam Aldrich MD) CT/MRI/US Diagnostic Results CT/MRI/US Diagnostic Results : Imaging Test Ordered: abd US Impression FINDINGS: Liver: Liver 17 cm Gallbladder: Possible acute cholecystitis given gallbladder full of stones and reportedly positive sonographic Crowell sign; correlate with presentation. Common bile duct: If there is further concern for biliary pathology, consider CT with IV contrast or hepatobiliary scintigraphy. CBD 0.5 cm No stones. No dilation. Pancreas: Unremarkable as visualized. Kidneys: Right kidney 10 cm Left kidney 13.5 cm No stones. No hydronephrosis. Spleen: Spleen 9 cm Aorta: Unremarkable. No aneurysm. Inferior vena cava: Unremarkable. Other findings: GB wall 0.3 cm IMPRESSION: 1. Possible acute cholecystitis given gallbladder full of stones and reportedly positive sonographic Crowell sign; correlate with presentation. 2. If there is further concern for biliary pathology, consider CT with IV contrast or hepatobiliary scintigraphy. 3. Otherwise no acute abnormality definitively identified to account for patient presentation. 4. Otherwise unremarkable study. (Rose Martinez) Last Vital Signs Date Time Temp Pulse Resp B/P (MAP) Pulse Ox O2 Delivery O2 Flow Rate FiO2 04/27/20 18:48 98.2 64 18 147/86 (106) 97 Room Air (Rose Martinez) Disposition: HOME, SELF-CARE Condition: Stable Scripts Ondansetron (Zofran) 4 Mg Tablet 4 MG ORAL Q6H PRN for Nausea & Vomiting, #14 TAB Prov: Rose Martinez 04/27/20 Meclizine Hcl* (MECLIZINE*) 25 Mg Tablet 25 MG ORAL THREE TIMES A DAY, #15 TAB Prov: Rose Martinez 04/27/20 Cephalexin* (KEFLEX*) 500 Mg Capsule 500 MG ORAL EVERY 12 HOURS for 7 Days, #14 CAP 0 Refills Prov: Rose Martinez 04/27/20 Referrals: [facility],REFERRING (PCP) Patient Instructions: Cholelithiasis, [id number], Dehydration, Adult, [id number], Dizziness, [id number], Urinary Tract Infection, [id number] Additional Instructions: Take medication as directed, follow-up with your primary care provider, follow-u p with general surgeon regarding gallstones, if worsening symptoms return to the emergency room. Increase oral hydration especially electrolyte water Rose Martinez Apr 27, 2020 20:19 Ghanshyam Aldrich MD Apr 28, 2020 02:50
--- NOTE | 2020-04-27 20:19 | NUR ---
ED Nurse Note: pt presented to ER withv complaints of dizziness, AVILA, and abdominal upset, blood specimen and urine collected and sent to lab, no complaints AOx4, ambulatory, vitals are stable, U/S complete
--- NOTE | 2020-04-27 20:26 | Diagnostic Imaging Report ---
EXAM: US Abdomen Complete CLINICAL HISTORY: PAIN TECHNIQUE: Real-time ultrasound of the abdomen with image documentation. COMPARISON: No relevant prior studies available. FINDINGS: Liver: Liver 17 cm Gallbladder: Possible acute cholecystitis given gallbladder full of stones and reportedly positive sonographic Crowell sign; correlate with presentation. Common bile duct: If there is further concern for biliary pathology, consider CT with IV contrast or hepatobiliary scintigraphy. CBD 0.5 cm No stones. No dilation. Pancreas: Unremarkable as visualized. Kidneys: Right kidney 10 cm Left kidney 13.5 cm No stones. No hydronephrosis. Spleen: Spleen 9 cm Aorta: Unremarkable. No aneurysm. Inferior vena cava: Unremarkable. Other findings: GB wall 0.3 cm IMPRESSION: 1. Possible acute cholecystitis given gallbladder full of stones and reportedly positive sonographic Crowell sign; correlate with presentation. 2. If there is further concern for biliary pathology, consider CT with IV contrast or hepatobiliary scintigraphy. 3. Otherwise no acute abnormality definitively identified to account for patient presentation. 4. Otherwise unremarkable study.
[2020-04-27] MEDS ORDERED: CEPHALEXIN500 MG ORAL (20:46)
[2020-04-27] MEDS ORDERED: ZOFRAN4 M1 ORAL (20:46)
[2020-04-27] MEDS ORDERED: MECLIZINE HCL25 MG ORAL (20:46)
--- NOTE | 2020-04-27 20:54 | NUR ---
ER DISCHARGE NOTE: Patient is cleared to be discharged per ERMD, pt is aox4, on room air, with stable vital signs. pt was given dc and prescription instructions, pt was able to verbalize understanding, pt id band and iv site removed without complications. pt is able to ambulate with steady gait. pt took all belongings.
--- NOTE | 2020-04-28 13:11 | Diagnostic Imaging Report ---
Procedure: XRAY Chest 1v Reason for study: Chest pain. Comparison films: 09/28/2019. FINDINGS: A single one view chest is obtained. Vascularity is normal. The lung joel are clear bilaterally. Cardiac and mediastinal silhouette are within normal limits. CP angles are sharp. The bony thorax appear unremarkable. IMPRESSION: NO ACUTE CARDIOPULMONARY DISEASE.
--- NOTE | 2020-04-28 19:16 | Cardiology Report ---
APPROVED REPORT EKG Measurement Heart [id number] <Conclusion> Sinus bradycardia Otherwise normal ECG
== END 2020-04-27 20:54 | disposition home or self-care (01) ==
LOC: EMR 18:55
DX: K80.20 Calculus of gallbladder without cholecystitis without obstruction (principal); E86.0 Dehydration; N39.0 Urinary tract infection, site not specified; R42 Dizziness and giddiness
CPT/HCPCS: 36415; 71045; 76700; 80053; 81003; 83690; 84484; 85025; 85610; 85730; 93005; 96361; 96374; 96375; 99284; J2405; J7030; S0028